=== PATIENT | male | born 2005 | race Caucasian/White ===

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

== ENCOUNTER 2023-04-29 21:26 | Emergency (ER) | payer OTHER ==
[~2023-04-29] VITALS: Ht 175.2 cm; Wt 104.3 kg
== END 2023-04-30 01:10 | disposition home or self-care (01) ==
LOC: ED 22:48
DX: S05.01XA Injury of conjunctiva and corneal abrasion without foreign body, right eye, initial encounter (principal); Z88.0 Allergy status to penicillin; X58.XXXA Exposure to other specified factors, initial encounter; Y93.89 Activity, other specified; Y92.009 Unspecified place in unspecified non-institutional (private) residence as the place of occurrence of the external cause; Y99.8 Other external cause status